=== PATIENT | male | born 1990 | race Caucasian/White ===

== ENCOUNTER 2017-04-04 09:29 | Emergency (ER) | payer SELFPAY ==
[~2017-04-04] VITALS: Ht 170.2 cm; Wt 73.0 kg
[2017-04-04 09:41] VITALS: BP 113/66
== END 2017-04-04 12:19 | disposition left against medical advice (07) ==
LOC: ER 11:18
DX: M25.511 Pain in right shoulder (principal); Z53.21 Procedure and treatment not carried out due to patient leaving prior to being seen by health care provider